=== PATIENT | female | born 1945 | race Hispanic/Latino ===

== ENCOUNTER → 2019-08-02 | Outpatient (RCR) | payer BC, OTHER | LOC: PT 07-15 14:27 | PROVIDERS: ATTEND Specialist | DX: S23.3XXD Sprain of ligaments of thoracic spine, subsequent encounter (principal); S33.5XXD Sprain of ligaments of lumbar spine, subsequent encounter; M54.6 Pain in thoracic spine; M54.5 Low back pain; M62.81 Muscle weakness (generalized); R29.3 Abnormal posture; R26.89 Other abnormalities of gait and mobility ==

== ENCOUNTER → 2019-09-02 | Outpatient (RCR) | payer OTHER | LOC: PT 08-04 10:10 | PROVIDERS: ATTEND Specialist | DX: M54.6 Pain in thoracic spine (principal); M54.5 Low back pain; S23.3XXD Sprain of ligaments of thoracic spine, subsequent encounter; S33.5XXD Sprain of ligaments of lumbar spine, subsequent encounter; M62.81 Muscle weakness (generalized); R29.3 Abnormal posture; R26.89 Other abnormalities of gait and mobility | CPT/HCPCS: 97139 ==

== ENCOUNTER 2019-09-15 13:47 | Observation (INO) | payer OTHER, MEDICARE ==
[~2019-09-15] VITALS: Ht 162.6 cm; Wt 105.7 kg
[2019-09-15] MEDS ORDERED: KETOROLAC TROMETHAMINE 30 MG/ML VIAL IV ONE (14:48)
[2019-09-15] MEDS ORDERED: SODIUM CHLORIDE 0.9% 1000ML 1,000 ML IV STA (14:48)
[2019-09-15] MEDS ORDERED: ONDANSETRON HCL INJ 2MG/ML 2ML 2 MG/ML VIAL IV ONE (14:48)
[2019-09-15] MEDS ORDERED: HYDROMORPHONE 1MG/1ML INJ IV ONE (14:48)
[2019-09-15 15:49] LABS: BASOPHILS # (AUTO) 0.1 (0.0-0.1); BASOPHILS % 0.9 % (0.0-1.0); EOSINOPHILS # (AUTO) 0.4 (0.0-0.4); EOSINOPHILS % 3.9 % (0.0-6.0); LYMPHOCYTES # (AUTO) 3.3 (1.0-3.2); LYMPHOCYTES % 36.1 % (18.0-39.1); MEAN CORPUSCULAR HEMOGLOBIN 31.5 pg (28-32); MEAN CORPUSCULAR HGB CONC 33.3 g/dL (31-35); MEAN CORPUSCULAR VOLUME 94.5 fL (81-99); MONOCYTES # (AUTO) 0.8 (0.2-0.8); MONOCYTES % 9.1 % (4.4-11.3); NEUTROPHILS # (AUTO) 4.6 (2.1-6.9); NEUTROPHILS % 49.8 % (38.7-80.0); PLATELET COUNT 379 x10e3/uL (140-360); RED BLOOD COUNT 4.76 x10e6/uL (3.6-5.1); RED CELL DISTRIBUTION WIDTH 14.6 % (11.7-14.4)
[2019-09-15 15:55] LABS: BILIRUBIN,URINE NEGATIVE (NEGATIVE); CLARITY,URINE SL CLOUDY (CLEAR); COLOR,URINE YELLOW (YELLOW); KETONES,URINE NEGATIVE (NEGATIVE); LEUKOCYTE ESTERASE ,URINE NEGATIVE (NEGATIVE); NITRITE,URINE NEGATIVE (NEGATIVE); PROTEIN,URINE DIPSTICK NEGATIVE (NEGATIVE); URINE UROBILINOGEN 1 mg/dL (0.2 - 1)
[2019-09-15 15:57] LABS: INR 0.95; PROTHROMBIN TIME 13.2 seconds (11.9-14.5)
[2019-09-15 15:58] LABS: PARTIAL THROMBOPLASTIN TIME 35.3 seconds (23.8-35.5)
[2019-09-15 16:05] LABS: ALANINE AMINOTRANSFERASE 29 IU/L (0-55); ALBUMIN 4.1 g/dL (3.5-5.0); ALKALINE PHOSPHATASE 68 IU/L (40-150); ANION GAP 12.1 mmol/L (8-16); BLOOD UREA NITROGEN 18 mg/dL (7-26); BUN/CREATININE RATIO 18 (6-25); CALCIUM 10.1 mg/dL (8.4-10.2); CARBON DIOXIDE 23 mmol/L (22-29); CHLORIDE 103 mmol/L (98-107); CREATINE KINASE 82 IU/L (29-168); CREATININE, SERUM 1.01 mg/dL (0.57-1.11); EST GLOMERULAR FILTRATION RATE 54 ML/MIN (60-); GLUCOSE 79 mg/dL (74-118); POTASSIUM 4.1 mmol/L (3.5-5.1); SODIUM 134 mmol/L (136-145)
[2019-09-15 16:07] LABS: AMORPHOUS SEDIMENT,URINE MODERATE (FEW); BACTERIA,URINE MODERATE /HPF; EPITHELIAL CELLS,URINE MODERATE /LPF; MUCUS,URINE FEW (RARE); RBC,URINE 0-5 /HPF (0-5)
[2019-09-15] MEDS ORDERED: HYDROMORPHONE 1MG/1ML INJ IV PRN (17:00)
[2019-09-15] MEDS ORDERED: SODIUM CHLORIDE 0.9% 1000ML 1,000 ML IV ONE (17:00)
--- NOTE | 2019-09-15 17:22 | Diagnostic Imaging Report ---
EXAM: CT Abdomen and Pelvis WITH intravenous contrast INDICATION: Abdominal pain COMPARISON: None. TECHNIQUE: Abdomen and pelvis were scanned utilizing a multidetector helical scanner from the lung base to the pubic symphysis after administration of IV contrast. Coronal and sagittal reformations were obtained. Routine protocol was performed. Scan was performed during portal venous phase. IV CONTRAST: 100mL of Isovue 370 ORAL CONTRAST: Water RADIATION DOSE: Total DLP: 827.1 mGy*cm Dose modulation, iterative reconstruction, and/or weight based adjustment of the mA/kV was utilized to reduce the radiation dose to as low as reasonably achievable. FINDINGS: LOWER THORAX: Mild bibasilar dependent subsegmental atelectasis. Scattered athetotic coronary artery calcifications. HEPATOBILIARY: Severe diffuse hepatic steatosis. 11 mm right hepatic and 8 mm left hepatic hypodensities, too small to adequately characterize. Minimal intrahepatic biliary ductal dilation. Status post cholecystectomy. SPLEEN: No splenomegaly. PANCREAS: No focal masses or ductal dilatation. ADRENALS: No adrenal nodules. KIDNEYS/URETERS: No hydronephrosis or renal calculi. Bilateral renal cysts. PELVIC ORGANS/BLADDER: Unremarkable. PERITONEUM / RETROPERITONEUM: No free air or fluid. LYMPH NODES: No lymphadenopathy. VESSELS: Atherosclerotic calcifications of the nonaneurysmal abdominal aorta and major branches. GI TRACT: Mild diverticulosis without CT evidence of diverticulitis. No abnormal bowel wall thickening. No bowel obstruction. Normal appendix. BONES AND SOFT TISSUES: No acute osseous injury. No suspicious lytic or blastic lesions. IMPRESSION: No acute findings in the abdomen or pelvis. Severe diffuse hepatic steatosis. Atherosclerotic arterial calcifications including of the coronary arteries. Signed by: Chacho Cuevas MD on 09/15/2019 5:19 PM
--- OUTSIDE RECORDS SUMMARY | 2019-09-15 17:45 | XMS REPORT ---
Author Author [facility] Address Unknown Phone Unavailable Care Team Providers Care Fleecer Name Role Phone Erik GORDON Unavailable Unavailable Problems This patient has no known problems. Allergies, Adverse Reactions, Alerts This patient has no known allergies or adverse reactions. Medications This patient has no known medications. Results Test Description Test Time Test Comments Text Results Atomic Results Result Comments CT ABDOMEN/PELVIS W 2019-09-15 17:13:00 [place] [address] Patient Name: YESI OAKLEY MR #: [id number] : 1945 Age/Sex: 74/F Req #: [id number] [facility] Physician: Ordered by: EDMOND GORDON MD Report #: [id number] Location: ER Room/Bed: Procedure: [id number] CT/CT ABDOMEN/PELVIS W Exam Date: 09/15/19 Exam Time: 1658 REPORT STATUS: Signed EXAM: CT Abdomen and Pelvis WITH intravenous contrast INDICATION: Abdominal pain COMPARISON: None. TECHNIQUE: Abdomen and pelvis were scanned utilizing a multidetector helical scanner from the lung base to the pubic symphysis after administration of IV contrast. Coronal and sagittal reformations were obtained. Routine protocol was performed. Scan was performed during portal venous phase. IV CONTRAST: 100mL of Isovue 370 ORAL CONTRAST: Water RADIATION DOSE: Total DLP: 827.1 mGy*cm Dose modulation, iterative reconstruction, and/or weight based adjustment of the mA/kV was utilized to reduce the radiation dose to as low as reasonably achievable. FINDINGS: LOWER THORAX: Mild bibasilar dependent subsegmental atelectasis. Scattered athetotic coronary artery calcifications. HEPATOBILIARY: Severe diffuse hepatic steatosis. 11 mm right hepatic and 8 mm left hepatic hypodensities, too small to adequately characterize. Minimal intrahepatic biliary ductal dilation. Status post cholecystectomy. SPLEEN: No splenomegaly. PANCREAS: No focal masses or ductal dilatation. ADRENALS: No adrenal nodules. KIDNEYS/URETERS: No hydronephrosis or renal calculi. Bilateral renal cysts. PELVIC ORGANS/BLADDER: Unremarkable. PERITONEUM / RETROPERITONEUM: No free air or fluid. LYMPH NODES: No lymphadenopathy. VESSELS: Atherosclerotic calcifications of the nonaneurysmal abdominal aorta and major branches. GI TRACT: Mild diverticulosis without CT evidence of diverticulitis. No abnormal bowel wall thickening. No bowel obstruction. Normal appendix. BONES AND SOFT TISSUES: No acute osseous injury. No suspicious lytic or blastic lesions. IMPRESSION: No acute findings in the abdomen or pelvis. Severe diffuse hepatic steatosis. Atherosclerotic arterial calcifications including of the coronary arteries. Signed by: Jonny Dennis MD on 09/15/2019 5:19 PM Dictated By: JONNY DENNIS MD 18 Transcribed By: MARC on 09/15/191718 COPY TO: EDMOND GORDON MD SCR MAMM BILATERAL VELMA CAD DIGITAL 2019-03-09 16:40:45 - SCR MAMM BILATERAL VELMA CAD DIGITALBILATERAL DIGITAL SCREENING MAMMOGRAM 3D/2D WITH CAD: 03/09/2019CLINICAL: Asymptomatic. Digital breast tomosynthesis was performed in addition to routine CC and MLO views. Current mammographic images were evaluated by either a [employer] M-Vu or a [employer] ImageChecker CAD (computer aided detection system). Comparison is made to exams dated 02/20/2018 mammogram, 01/01 mammogram, and 12/11/2015 mammogram - [facility]. The tissue of both breasts is predominantly fatty. There is mild vascular calcification in both breasts. There also are benign intramammary nodes in both breasts. Additionally, there is a benign calcification in the right breast. No suspicious new mass, architectural distortion, malignant type calcification, or lymph node abnormality detected. Breast architecture is stable compared to prior exams.IMPRESSION: BENIGNThere is no mammographic evidence of malignancy. Resume annual screening mammography in one year. West Ortiz M.D. rb/:03/09/2019 16:40:45 Food And Beverage Manager: Dinora WELCH, [facility] sent: BIRADS 1-2 Normal Mammogram BI-RADS: 2 Benign
--- NOTE | 2019-09-15 18:00 | NUR ---
Pt received from ER at this time. Pt is aox4 and able to verbalize needs. Pt states that pain to back is tolerable at this time. Skin is intact and is able to ambulate with minimum assistance. Pt was admitted for ongoing back pain.
[2019-09-15] MEDS: ONDANSETRON HCL INJ 2MG/ML 2ML 2 MG/ML VIAL IV PRN ×2 (18:10→21:54)
[2019-09-15 18:15] VITALS: BP 178/77
[2019-09-15 18:21] VITALS: BP 178/77
[2019-09-15 18:29] VITALS: BP 178/77
[2019-09-15] MEDS ORDERED: SODIUM CHLORIDE 0.9% 50ML 50 ML ONE (18:30)
[2019-09-15] MEDS ORDERED: IOPAMIDOL 370 MG/ML 200 ML INFUS..BTL INJ ONE (18:30)
[2019-09-15] MEDS ORDERED: BACTRIM DS TAB1 EACH PO (18:39)
[2019-09-15] MEDS ORDERED: LISINOPRIL10 MG PO (18:39)
[2019-09-15] MEDS ORDERED: LEVOTHYROXINE50 MCG PO (18:39)
[2019-09-15 19:30] VITALS: BP 178/77
--- NOTE | 2019-09-15 19:30 | NUR ---
patient received awake, alert, lying quietly in bed. no c/o pain noted. ivf initiated per orders. pm assessment complete. family noted at the bedside. patient/family instructed to call for assistance when needed.
--- NOTE | 2019-09-15 21:54 | NUR ---
patient medicated with zofran 4mg ivp for c/o n/v. patient refuses pain medication at this time.
[2019-09-15 23:50] VITALS: BP 131/63
--- NOTE | 2019-09-16 02:00 | NUR ---
patient appears to be resting quietly. no c/o pain or nausea noted. ivf continue to infuse without difficulty. remains at the bedside.
[2019-09-16 05:31] VITALS: BP 129/60
[2019-09-16 07:21] LABS: BASOPHILS # (AUTO) 0.1 (0.0-0.1); BASOPHILS % 0.9 % (0.0-1.0); EOSINOPHILS # (AUTO) 0.5 (0.0-0.4); EOSINOPHILS % 6.2 % (0.0-6.0); HEMATOCRIT 43.3 % (34.2-44.1); HEMOGLOBIN 14.4 g/dL (12.0-16.0); LYMPHOCYTES # (AUTO) 2.9 (1.0-3.2); LYMPHOCYTES % 38.7 % (18.0-39.1); MEAN CORPUSCULAR HEMOGLOBIN 31.7 pg (28-32); MEAN CORPUSCULAR HGB CONC 33.3 g/dL (31-35); MEAN CORPUSCULAR VOLUME 95.4 fL (81-99); MONOCYTES # (AUTO) 0.7 (0.2-0.8); MONOCYTES % 8.8 % (4.4-11.3); NEUTROPHILS # (AUTO) 3.3 (2.1-6.9); NEUTROPHILS % 45.1 % (38.7-80.0); PLATELET COUNT 324 x10e3/uL (140-360); RED BLOOD COUNT 4.54 x10e6/uL (3.6-5.1); RED CELL DISTRIBUTION WIDTH 14.7 % (11.7-14.4)
[2019-09-16 07:37] LABS: ALANINE AMINOTRANSFERASE 23 IU/L (0-55); ALBUMIN 3.3 g/dL (3.5-5.0); ALKALINE PHOSPHATASE 58 IU/L (40-150); ANION GAP 9.5 mmol/L (8-16); BLOOD UREA NITROGEN 14 mg/dL (7-26); BUN/CREATININE RATIO 18 (6-25); CARBON DIOXIDE 22 mmol/L (22-29); CHLORIDE 109 mmol/L (98-107); CREATININE, SERUM 0.79 mg/dL (0.57-1.11); EST GLOMERULAR FILTRATION RATE > 60 ML/MIN (60-); GLUCOSE 88 mg/dL (74-118); POTASSIUM 4.5 mmol/L (3.5-5.1); SODIUM 136 mmol/L (136-145)
[2019-09-16 08:00] VITALS: BP 133/60
[2019-09-16] MEDS ORDERED: LISINOPRIL 20 MG TAB PO SCH (10:00)
[2019-09-16] MEDS ORDERED: LEVOTHYROXINE SODIUM 50 MCG TAB PO SCH (11:30)
[2019-09-16 12:00] VITALS: BP 150/65
--- NOTE | 2019-09-16 15:26 | NUR ---
Pt discharged home at this time. 0 s/s of acute distress noted. Pt and family verbalized of all discharge and follow up instructions. Denies any pain at this time.
[2019-09-17] MEDS ORDERED: LISINOPRIL 10 MG TAB PO SCH (09:00)
== END 2019-09-16 15:22 | disposition home or self-care (01) ==
LOC: ER 13:47 → ERHOLD 16:58 → MED/SURG3 18:00
PROVIDERS: ADMIT Internal Medicine; ATTEND Internal Medicine
DX: S29.012A Strain of muscle and tendon of back wall of thorax, initial encounter (principal); M54.5 Low back pain; R10.11 Right upper quadrant pain; Z90.49 Acquired absence of other specified parts of digestive tract; Z88.5 Allergy status to narcotic agent; I10 Essential (primary) hypertension; E03.9 Hypothyroidism, unspecified; E78.5 Hyperlipidemia, unspecified; Z87.442 Personal history of urinary calculi; Z82.49 Family history of ischemic heart disease and other diseases of the circulatory system; R73.03 Prediabetes
CPT/HCPCS: 36415 ×2; 74177; 80053 ×2; 81001; 82550; 82553; 84484; 85025 ×2; 85610; 85730; 87086; 97116; 97161; 99284; G0378 ×2; J1170; J1885; J2405; J7030; Q9967

== ENCOUNTER 2019-09-27 15:49 | Outpatient (RCR) | payer OTHER ==
[~2019-09-27 15:49] MED LIST: BACTRIM DS TAB1 EACH PO; LEVOTHYROXINE50 MCG PO; LISINOPRIL10 MG PO
== END 2019-10-02 ==
LOC: PT 15:49
PROVIDERS: ATTEND Specialist
DX: S23.3XXD Sprain of ligaments of thoracic spine, subsequent encounter (principal); S33.5XXA Sprain of ligaments of lumbar spine, initial encounter
CPT/HCPCS: 97010 ×2; 97110 ×6; 97139; 97140; G0283 ×2

== ENCOUNTER 2020-09-04 05:08 | Emergency (ER) | payer OTHER ==
[~2020-09-04] VITALS: Ht 162.6 cm; Wt 104.3 kg
[2020-09-04] MEDS ORDERED: ONDANSETRON HCL INJ 2MG/ML 2ML 2 MG/ML VIAL IV STA (05:31)
[2020-09-04] MEDS ORDERED: ONDANSETRON HCL INJ 2MG/ML 2ML 2 MG/ML VIAL ONE (05:37)
[2020-09-04] MEDS ORDERED: MECLIZINE HCL 12.5 MG TAB ONE (05:41)
[2020-09-04 05:42] LABS: BASOPHILS # (AUTO) 0.1 (0.0-0.1); EOSINOPHILS # (AUTO) 0.5 (0.0-0.4); EOSINOPHILS % 4.8 % (0.0-6.0); HEMATOCRIT 43.2 % (34.2-44.1); HEMOGLOBIN 14.6 g/dL (12.0-16.0); LYMPHOCYTES # (AUTO) 5.1 (1.0-3.2); LYMPHOCYTES % 51.9 % (18.0-39.1); MEAN CORPUSCULAR HEMOGLOBIN 32.7 pg (28-32); MEAN CORPUSCULAR HGB CONC 33.8 g/dL (31-35); MEAN CORPUSCULAR VOLUME 96.6 fL (81-99); MONOCYTES # (AUTO) 0.8 (0.2-0.8); MONOCYTES % 7.9 % (4.4-11.3); NEUTROPHILS # (AUTO) 3.3 (2.1-6.9); PLATELET COUNT 337 x10e3/uL (140-360); RED BLOOD COUNT 4.47 x10e6/uL (3.6-5.1); RED CELL DISTRIBUTION WIDTH 14.3 % (11.7-14.4)
[2020-09-04] MEDS ORDERED: MECLIZINE HCL 12.5 MG TAB PO ONE (05:45)
[2020-09-04 05:53] LABS: ALANINE AMINOTRANSFERASE 21 IU/L (0-55); ALBUMIN 3.8 g/dL (3.5-5.0); ALBUMIN/GLOBULIN RATIO 1.1 (0.8-2.0); ALKALINE PHOSPHATASE 70 IU/L (40-150); ANION GAP 14.9 mmol/L (8-16); BLOOD UREA NITROGEN 13 mg/dL (7-26); BUN/CREATININE RATIO 17 (6-25); CARBON DIOXIDE 22 mmol/L (22-29); CHLORIDE 107 mmol/L (98-107); CREATINE KINASE 58 IU/L (29-168); CREATININE, SERUM 0.77 mg/dL (0.57-1.11); EST GLOMERULAR FILTRATION RATE > 60 ML/MIN (60-); GLUCOSE 138 mg/dL (74-118); POTASSIUM 3.9 mmol/L (3.5-5.1); SODIUM 140 mmol/L (136-145)
[2020-09-04 06:16] LABS: COLOR,URINE YELLOW (YELLOW)
[2020-09-04 06:17] LABS: BILIRUBIN,URINE NEGATIVE (NEGATIVE); CLARITY,URINE HAZY (CLEAR); KETONES,URINE NEGATIVE (NEGATIVE); LEUKOCYTE ESTERASE ,URINE TRACE (NEGATIVE); NITRITE,URINE NEGATIVE (NEGATIVE); PROTEIN,URINE DIPSTICK 2+ (NEGATIVE); URINE UROBILINOGEN 0.2 mg/dL (0.2 - 1)
[2020-09-04 06:47] LABS: BACTERIA,URINE MODERATE /HPF; EPITHELIAL CELLS,URINE FEW /LPF; MUCUS,URINE FEW (RARE)
[2020-09-04] MEDS ORDERED: MECLIZINE HCL12.5 MG PO (06:58)
== END 2020-09-04 07:23 | disposition home or self-care (01) ==
LOC: ER 05:23
DX: R42 Dizziness and giddiness (principal); R11.2 Nausea with vomiting, unspecified; I10 Essential (primary) hypertension; E03.9 Hypothyroidism, unspecified; E78.5 Hyperlipidemia, unspecified; M54.9 Dorsalgia, unspecified; G89.29 Other chronic pain
CPT/HCPCS: 36415; 70450; 80053; 81001; 82550; 82553; 84484; 85025; 93005; 99284; J2405; J8597

== ENCOUNTER 2020-11-24 06:16 | Emergency (ER) | payer MEDICARE, OTHER ==
[~2020-11-24] VITALS: Ht 162.6 cm; Wt 104.3 kg
[~2020-11-24 06:16] MED LIST changes: +MECLIZINE HCL12.5 MG PO
[2020-11-24] MEDS ORDERED: KETOROLAC TROMETHAMINE 30 MG/ML VIAL IV STA (06:18)
[2020-11-24] MEDS ORDERED: ONDANSETRON HCL INJ 2MG/ML 2ML 2 MG/ML VIAL IV STA (06:18)
[2020-11-24] MEDS ORDERED: SODIUM CHLORIDE 0.9% 1000ML 1,000 ML IV STA (06:18)
[2020-11-24 07:03] LABS: BASOPHILS % 0.4 % (0.0-1.0); EOSINOPHILS % 0.1 % (0.0-6.0); HEMATOCRIT 43.9 % (34.2-44.1); HEMOGLOBIN 14.7 g/dL (12.0-16.0); LYMPHOCYTES % 29.5 % (18.0-39.1); MEAN CORPUSCULAR HEMOGLOBIN 31.1 pg (28-32); MEAN CORPUSCULAR HGB CONC 33.5 g/dL (31-35); MEAN CORPUSCULAR VOLUME 92.8 fL (81-99); MONOCYTES # (AUTO) 0.5 (0.2-0.8); MONOCYTES % 6.7 % (4.4-11.3); NEUTROPHILS # (AUTO) 4.3 (2.1-6.9); PLATELET COUNT 257 x10e3/uL (140-360); RED BLOOD COUNT 4.73 x10e6/uL (3.6-5.1); RED CELL DISTRIBUTION WIDTH 13.8 % (11.7-14.4)
[2020-11-24 07:08] LABS: CLARITY,URINE CLOUDY (CLEAR); COLOR,URINE YELLOW (YELLOW); KETONES,URINE NEGATIVE (NEGATIVE); LEUKOCYTE ESTERASE ,URINE SMALL (NEGATIVE); NITRITE,URINE NEGATIVE (NEGATIVE); PROTEIN,URINE DIPSTICK 1+ (NEGATIVE); URINE UROBILINOGEN 1 mg/dL (0.2 - 1)
[2020-11-24 07:27] LABS: WBC,URINE (MAN) >50 /HPF (0-5)
[2020-11-24 07:28] LABS: BACTERIA,URINE MANY /HPF; EPITHELIAL CELLS,URINE MODERATE /LPF; RBC,URINE 0-5 /HPF (0-5); TRANSITIONAL EPI CELLS,URINE FEW
[2020-11-24 07:54] LABS: ALBUMIN 3.7 g/dL (3.5-5.0); ANION GAP 18.1 mmol/L (8-16); CREATININE, SERUM 0.96 mg/dL (0.57-1.11); POTASSIUM 4.1 mmol/L (3.5-5.1)
[2020-11-24 08:00] LABS: CREATINE KINASE MB 1.1 ng/mL (0-5.0)
[2020-11-24] MEDS ORDERED: CEFTRIAXONE SOD 1 GM/NS 50 ML 50 ML IV ONE (08:45)
[2020-11-24] MEDS ORDERED: PYRIDIUM100 MG PO (09:24)
[2020-11-24] MEDS ORDERED: CEFUROXIME250 MG PO (09:24)
[2020-11-24 09:59] VITALS: BP 125/57
== END 2020-11-24 10:08 | disposition home or self-care (01) ==
LOC: ER 06:48
DX: N39.0 Urinary tract infection, site not specified (principal); I10 Essential (primary) hypertension; E03.9 Hypothyroidism, unspecified; Z88.6 Allergy status to analgesic agent
CPT/HCPCS: 36415; 74176; 80053; 81001; 82550; 82553; 84484; 85025; 87086; 99284; J0696; J1885; J2405; J7030

== ENCOUNTER 2020-12-28 03:28 | Emergency (ER) | payer MEDICARE, OTHER ==
[~2020-12-28] VITALS: Ht 162.6 cm; Wt 104.3 kg
[~2020-12-28 03:28] MED LIST changes: +CEFUROXIME250 MG PO; +PYRIDIUM100 MG PO
[2020-12-28] MEDS ORDERED: KETOROLAC TROMETHAMINE 30 MG/ML VIAL IM STA (03:44)
== END 2020-12-28 04:30 | disposition home or self-care (01) ==
LOC: ER 04:00
DX: M79.10 Myalgia, unspecified site (principal); T50.Z95A Adverse effect of other vaccines and biological substances, initial encounter; I10 Essential (primary) hypertension; E03.9 Hypothyroidism, unspecified; E78.5 Hyperlipidemia, unspecified; M54.9 Dorsalgia, unspecified; G89.29 Other chronic pain
CPT/HCPCS: 99282; J1885

== ENCOUNTER → 2020-12-29 | Outpatient (CLI) | payer MEDICARE, OTHER | LOC: CT 08:26 | PROVIDERS: ATTEND Internal Medicine | DX: M54.5 Low back pain (principal); Z87.442 Personal history of urinary calculi | CPT/HCPCS: 74176 ==

== ENCOUNTER → 2021-02-08 | Outpatient (CLI) | payer MEDICARE, OTHER | LOC: CT 07:43 | PROVIDERS: ATTEND Urology | DX: R31.21 Asymptomatic microscopic hematuria (principal); N28.1 Cyst of kidney, acquired | CPT/HCPCS: 74176 ==

== ENCOUNTER → 2021-03-19 | Outpatient (CLI) | payer MEDICARE, OTHER ==
[~2021-03-19] MED LIST changes: +IOPAMIDOL 370 MG/ML 200 ML INFUS..BTL INJ ONE; +SODIUM CHLORIDE 0.9% 50ML 50 ML ONE
[2021-03-19 12:34] LABS: BLOOD UREA NITROGEN 11 mg/dL (7-26); BUN/CREATININE RATIO 16 (6-25); CREATININE, SERUM 0.68 mg/dL (0.57-1.11); EST GLOMERULAR FILTRATION RATE > 60 ML/MIN (60-)
== END ==
LOC: CT 11:41
PROVIDERS: ATTEND Internal Medicine
DX: R91.8 Other nonspecific abnormal finding of lung field (principal); R10.11 Right upper quadrant pain
CPT/HCPCS: 36415; 71260; 82565; 84520; Q9967

== ENCOUNTER → 2021-06-12 | Outpatient (CLI) | payer MEDICARE, OTHER ==
[~2021-06-12] MED LIST changes: -IOPAMIDOL 370 MG/ML 200 ML INFUS..BTL INJ ONE; -SODIUM CHLORIDE 0.9% 50ML 50 ML ONE
== END ==
LOC: CARD 08:22
PROVIDERS: ATTEND Internal Medicine
DX: R60.0 Localized edema (principal)
CPT/HCPCS: 93925

== ENCOUNTER → 2021-06-27 | Outpatient (CLI) | payer MEDICARE, OTHER | LOC: US 09:08 | PROVIDERS: ATTEND Internal Medicine | DX: R22.1 Localized swelling, mass and lump, neck (principal) | CPT/HCPCS: 76536 ==

== ENCOUNTER → 2021-11-23 | Outpatient (CLI) | payer MEDICARE, OTHER | LOC: MRI 08:51 | PROVIDERS: ATTEND Physical Medicine & Rehabilitation Pain Medicine | DX: M43.16 Spondylolisthesis, lumbar region (principal) | CPT/HCPCS: 72148 ==

== ENCOUNTER → 2021-12-07 | Outpatient (CLI) | payer MEDICARE, OTHER | LOC: NM 09:24 | PROVIDERS: ATTEND Physical Medicine & Rehabilitation Pain Medicine | DX: M54.50 Low back pain, unspecified (principal); M84.30XA Stress fracture, unspecified site, initial encounter for fracture | CPT/HCPCS: 78300; 78803; A9503 ==

== ENCOUNTER → 2022-01-14 | Outpatient (CLI) | payer MEDICARE, OTHER | LOC: US 09:06 | PROVIDERS: ATTEND Otolaryngology | DX: E04.2 Nontoxic multinodular goiter (principal) | CPT/HCPCS: 76536 ==

== ENCOUNTER → 2022-01-29 | Outpatient (CLI) | payer MEDICARE, OTHER ==
[~2022-01-29] MED LIST changes: +LIDOCAINE HCL 1% LOCAL INJ 20 ML VIAL ONE
== END ==
LOC: US 11:55
PROVIDERS: ATTEND Otolaryngology
DX: E04.2 Nontoxic multinodular goiter (principal)
CPT/HCPCS: 10005; 88112; 88305; J2001; 88172; 88173

== ENCOUNTER 2022-09-06 23:49 | Observation (INO) | payer MEDICARE, OTHER ==
[~2022-09-06] VITALS: Ht 160 cm; Wt 94.8 kg
[~2022-09-06 23:49] MED LIST changes: -LIDOCAINE HCL 1% LOCAL INJ 20 ML VIAL ONE
[2022-09-07] MEDS ORDERED: MECLIZINE HCL 12.5 MG TAB PO ONE (01:45)
[2022-09-07] MEDS ORDERED: MECLIZINE HCL 12.5 MG TAB ONE (01:59)
[2022-09-07] MEDS ORDERED: ONDANSETRON HCL INJ 2MG/ML 2ML 2 MG/ML VIAL IV STA ×2 (02:12→03:10)
[2022-09-07] MEDS ORDERED: ONDANSETRON HCL INJ 2MG/ML 2ML 2 MG/ML VIAL ONE ×2 (02:25→03:20)
[2022-09-07] MEDS ORDERED: HYDRALAZINE HCL 20 MG/ML VIAL IV PRN (04:00)
[2022-09-07] MEDS ORDERED: SODIUM CHLORIDE FLUSH 10 ML SYR INJ PRN (04:00)
[2022-09-07] MEDS ORDERED: ONDANSETRON HCL INJ 2MG/ML 2ML 2 MG/ML VIAL IV PRN (04:00)
[2022-09-07 07:57] VITALS: BP 143/53
[2022-09-07] MEDS ORDERED: OXYBUTYNIN CHLOR5 MG PO (09:46)
[2022-09-07] MEDS ORDERED: MACRODANTIN100 MG PO (09:46)
[2022-09-07] MEDS ORDERED: HYDRALAZINE HCL25 MG PO (09:46)
[2022-09-07] MEDS ORDERED: VITAMIN D3250 MC1 PO (09:46)
[2022-09-07 11:37] VITALS: BP 129/44
[2022-09-07 15:21] VITALS: BP 130/57
[2022-09-07] MEDS: NITROFURANTOIN MACROCRYSTALS 100 MG CAP PO SCH (18:00)
[2022-09-07 20:00] VITALS: BP 126/59
[2022-09-07] MEDS: OXYBUTYNIN CHLORIDE 5 MG TAB PO SCH (20:58)
[2022-09-07] MEDS: HYDRALAZINE HCL 25 MG TAB PO SCH (20:58)
[2022-09-07 21:00] VITALS: BP 126/59
[2022-09-07] MEDS: LISINOPRIL 10 MG TAB PO SCH (21:01)
[2022-09-08] VITALS: BP 126/50
[2022-09-08 04:00] VITALS: BP 129/63
[2022-09-08] MEDS: HYDRALAZINE HCL 25 MG TAB PO SCH (05:56)
[2022-09-08] MEDS ORDERED: LEVOTHYROXINE SODIUM 50 MCG TAB PO SCH (06:30)
[2022-09-08 07:21] VITALS: BP 114/46
[2022-09-08] MEDS ORDERED: MECLIZINE HCL 12.5 MG TAB PO SCH (09:00)
[2022-09-08] MEDS: NITROFURANTOIN MACROCRYSTALS 100 MG CAP PO SCH (09:13)
[2022-09-08] MEDS: OXYBUTYNIN CHLORIDE 5 MG TAB PO SCH (09:13)
[2022-09-08] MEDS: LISINOPRIL 10 MG TAB PO SCH (09:13)
[2022-09-08 09:18] VITALS: BP 114/46
== END 2022-09-08 10:06 | disposition home or self-care (01) ==
LOC: FSED 23:53 → ERHOLD 09-07 04:02 → MED/SURG3 09-07 07:53
DX: I10 Essential (primary) hypertension (principal); E03.9 Hypothyroidism, unspecified; G89.29 Other chronic pain; M54.9 Dorsalgia, unspecified; F43.9 Reaction to severe stress, unspecified; H81.10 Benign paroxysmal vertigo, unspecified ear; Z79.899 Other long term (current) drug therapy; Z20.822 Contact with and (suspected) exposure to COVID-19
CPT/HCPCS: 70450; 80053; 81003; 82553; 85025; 87400; 93005; 99284; G0378 ×2; J2405; J8597 ×2; U0002

== ENCOUNTER → 2023-02-04 | Outpatient (CLI) | payer MEDICARE ==
[~2023-02-04] MED LIST changes: +HYDRALAZINE HCL25 MG PO; +MACRODANTIN100 MG PO; +OXYBUTYNIN CHLOR5 MG PO; +VITAMIN D3250 MC1 PO
== END ==
LOC: US 09:37
PROVIDERS: ATTEND Otolaryngology
DX: E04.2 Nontoxic multinodular goiter (principal)
CPT/HCPCS: 76536

== ENCOUNTER → 2023-11-24 | Outpatient (REF) | payer MEDICARE | LOC: US 12:17 | PROVIDERS: ATTEND Otolaryngology | DX: E04.2 Nontoxic multinodular goiter (principal) | CPT/HCPCS: 76536 ==

== ENCOUNTER → 2025-01-13 | Day surgery (SDC) | payer MEDICARE ==
[2025-01-04 10:48] LABS: BASOPHILS # (AUTO) 0.1 (0.0-0.1); BASOPHILS % 1.2 % (0.0-1.0); EOSINOPHILS # (AUTO) 0.2 (0.0-0.4); HEMOGLOBIN 8.9 g/dL (12.0-16.0); LYMPHOCYTES # (AUTO) 2.1 (1.0-3.2); LYMPHOCYTES % 29.4 % (18.0-39.1); MEAN CORPUSCULAR HEMOGLOBIN 25.1 pg (28-32); MEAN CORPUSCULAR HGB CONC 30.7 g/dL (31-35); MEAN CORPUSCULAR VOLUME 81.9 fL (81-99); MONOCYTES # (AUTO) 0.5 (0.2-0.8); MONOCYTES % 7.5 % (4.4-11.3); NEUTROPHILS # (AUTO) 4.2 (2.1-6.9); NEUTROPHILS % 58.5 % (38.7-80.0); PLATELET COUNT 499 x10e3/uL (140-360); RED BLOOD COUNT 3.54 x10e6/uL (3.6-5.1); RED CELL DISTRIBUTION WIDTH 22.3 % (11.7-14.4); WHITE BLOOD COUNT 7.24 x10e3/uL (4.8-10.8)
[~2025-01-13] MED LIST changes: +LACTATED RINGER'S 1,000 ML ONE; +LIDOCAINE HCL 2% LOCAL INJ 5 ML SDV VIAL INJ ONE; +LIPITOR10 MG PO; +METRONIDAZOLE500 MG PO; +OMEPRAZOLE40 MG PO; +PANTOPRAZOLE SO40 MG PO; +PLAVIX75 MG PO; +PROPOFOL IV EMULSION 10 MG/ML 20 ML VIAL ONE; +TETRACYCLINE H250 MG PO; +TRIMETHOPRIM100 MG PO; +ZESTRIL10 MG PO; +iron infusion IV
[2025-01-13 09:15] VITALS: BP 109/53; PULSE 62; RESP 16; TEMP 97.8; O2SAT 99
== END | disposition home or self-care (01) ==
LOC: OR 06:03
PROVIDERS: ATTEND Internal Medicine Gastroenterology
DX: D50.9 Iron deficiency anemia, unspecified (principal); Z86.0100 Personal history of colon polyps, unspecified; K29.50 Unspecified chronic gastritis without bleeding; K31.A12 Gastric intestinal metaplasia without dysplasia, involving the body (corpus); K57.30 Diverticulosis of large intestine without perforation or abscess without bleeding; K21.9 Gastro-esophageal reflux disease without esophagitis; K64.8 Other hemorrhoids; Z71.3 Dietary counseling and surveillance; I25.10 Atherosclerotic heart disease of native coronary artery without angina pectoris; I10 Essential (primary) hypertension; I25.2 Old myocardial infarction; E78.5 Hyperlipidemia, unspecified; E03.9 Hypothyroidism, unspecified; E66.01 Morbid (severe) obesity due to excess calories; G89.29 Other chronic pain; N20.0 Calculus of kidney; Z88.6 Allergy status to analgesic agent; Z01.810 Encounter for preprocedural cardiovascular examination; Z01.812 Encounter for preprocedural laboratory examination; Z79.02 Long term (current) use of antithrombotics/antiplatelets; Z79.899 Other long term (current) drug therapy; Z68.34 Body mass index [BMI] 34.0-34.9, adult; Z87.891 Personal history of nicotine dependence; Z95.5 Presence of coronary angioplasty implant and graft
CPT/HCPCS: 36415; 43239; 45378; 85025; 88305; 88342; 93005; J2003; J2704; J7121